=== PATIENT | female | born 1965 | race Caucasian/White ===

== ENCOUNTER 2017-03-28 07:18 | Inpatient (IN) | payer OTHER ==
[~2017-03-28] VITALS: Ht 160 cm; Wt 66.3 kg
[2017-03-28 08:17] LABS: HEMATOCRIT 25.4 % (36.0-46.0); MCH 29.1 PG (29.0-34.0); MCHC 33.1 G/DL (30.0-36.0); MCV 87.9 FL (83-99); RBC DIS.WIDTH-CV 15.1 % (11.8-14.6); RBC DIS.WIDTH-SD 48.9 % (39-53); RED BLOOD COUNT 2.89 M/uL (3.80-5.20); WHITE BLOOD COUNT 7.9 K/uL (4.1-10.2)
[2017-03-28 08:21] LABS: CARBON DIOXIDE (BICARBONATE) 24.6 MEQ/L (20-31)
[2017-03-28 08:47] LABS: TROP-I INTERPRETATION NEGATIVE; TROPONIN-I 0.07 ng/mL (0.0-0.30)
[2017-03-28 09:02] LABS: PLAT.SUFFICIENCY DECREASED
[2017-03-28 09:04] LABS: ANION GAP 11 MEQ/L (2-14); CHLORIDE 103 MEQ/L (99-109); GFR ESTIMATE (CALCULATED) > 59 mL/min/; GLUCOSE 136 mg/dL (70-99); POTASSIUM 3.5 MEQ/L (3.7-5.4); SAMPLE HEMOLYSIS CHECK 0; SAMPLE ICTERIC CHECK 0; SAMPLE LIPEMIA CHECK 0; SODIUM 135 MEQ/L (136-147); UREA NITROGEN (BUN) 16 mg/dL (9-23)
[2017-03-28 09:10] LABS: ADD MIUA? YES; BILIRUBIN NEGATIVE; BLOOD MODERATE; COLOR COLORLESS ((YELLOW)); GLUCOSE (STRIP) NEGATIVE; KETONES NEGATIVE; LEUKOCYTES NEGATIVE; NITRITE NEGATIVE; PROTEIN (STRIP) NEGATIVE; SPECIFIC GRAVITY 1.002 (1.000-1.030); UROBILINOGEN 0.2 MG/DL (0.2-1.0)
[2017-03-28 09:12] LABS: BACTERIA NONE SEEN /HPF; EPITHELIAL CELLS NONE SEEN /HPF; MUCUS NONE SEEN /LPF; RED BLOOD CELLS 0-5 /HPF (0-5); UCUL ADDED? NO; WHITE BLOOD CELLS 0-5 /HPF (0-5)
[2017-03-28 09:19] LABS: IMM.PLATELET FRACTION 4.6 (1-7); MEAN PLAT.VOLUME 10.8 uM^3 (9.5-12.4)
[2017-03-28 09:20] LABS: PLATELET COUNT 27 K/uL (156-360)
[2017-03-28] MEDS ORDERED: VALTREX50 MG/ML PO (11:53)
[2017-03-28] MEDS ORDERED: SYNTHROID88 MCG PO (11:54)
[2017-03-28] MEDS ORDERED: COLCHICINE0.6 M1 PO (11:54)
[2017-03-28] MEDS ORDERED: HYDREA500 MG PO (11:54)
[2017-03-28] MEDS ORDERED: TYLENOL EXTRA500 MG PO (11:55)
[2017-03-28] MEDS ORDERED: CRESEMBA186 MG PO (11:55)
[2017-03-28] MEDS ORDERED: LEVOFLOXACIN500 MG PO (11:55)
[2017-03-28] MEDS ORDERED: ZOFRAN4 MG PO (11:56)
[2017-03-28] MEDS ORDERED: COMPAZINE5 MG PO (11:56)
[2017-03-28 13:35] VITALS: BP 106/72
[2017-03-28 17:40] VITALS: BP 128/71
[2017-03-28 20:29] VITALS: BP 124/74
[2017-03-29 00:19] VITALS: BP 111/66
[2017-03-29 03:57] VITALS: BP 113/73
[2017-03-29 06:58] LABS: ANION GAP 12 MEQ/L (2-14); CHLORIDE 109 MEQ/L (99-109); POTASSIUM 3.6 MEQ/L (3.7-5.4); SAMPLE HEMOLYSIS CHECK 0; SAMPLE ICTERIC CHECK 0; SAMPLE LIPEMIA CHECK 0; SODIUM 140 MEQ/L (136-147)
[2017-03-29 07:04] LABS: GFR ESTIMATE (CALCULATED) > 59 mL/min/; GLUCOSE 120 mg/dL (70-99); UREA NITROGEN (BUN) 11 mg/dL (9-23)
[2017-03-29 08:29] VITALS: BP 109/65
[2017-03-29 11:29] LABS: HEMATOCRIT 22.7 % (36.0-46.0); IMM.PLATELET FRACTION 8.8 (1-7); MCH 30.5 PG (29.0-34.0); MCHC 34.4 G/DL (30.0-36.0); MCV 88.7 FL (83-99); MEAN PLAT.VOLUME 10.4 uM^3 (9.5-12.4); PLAT.SUFFICIENCY DECREASED; RBC DIS.WIDTH-CV 15.5 % (11.8-14.6); RBC DIS.WIDTH-SD 50.2 % (39-53); RED BLOOD COUNT 2.56 M/uL (3.80-5.20)
[2017-03-29 11:43] VITALS: BP 110/72
[2017-03-29] MEDS ORDERED: VANCOMYCIN HCL500 MG IV (13:04)
[2017-03-29] MEDS ORDERED: ZOSYN 3.3753.375 GM IV (13:05)
[2017-03-29 13:19] LABS: PLATELET COUNT 17 K/uL (156-360)
== END 2017-03-29 15:01 | disposition short-term general hospital (02) | DRG 834 ==
LOC: EME 07:18 → EDOF 10:34 → ENRESERV 10:37 → 5SOUTH 13:20
PROVIDERS: Emergency Medicine; Hospitalist; Internal Medicine
DX: C92.00 Acute myeloblastic leukemia, not having achieved remission (principal); R50.81 Fever presenting with conditions classified elsewhere; R65.10 Systemic inflammatory response syndrome (SIRS) of non-infectious origin without acute organ dysfunction; J16.8 Pneumonia due to other specified infectious organisms; B49 Unspecified mycosis; E86.0 Dehydration; Z94.81 Bone marrow transplant status; Z92.21 Personal history of antineoplastic chemotherapy; D69.6 Thrombocytopenia, unspecified; I95.9 Hypotension, unspecified; E03.9 Hypothyroidism, unspecified; I31.3 Pericardial effusion (noninflammatory); R00.0 Tachycardia, unspecified; R00.2 Palpitations
CPT/HCPCS: 71020; 71275; 80048; 81003; 82803; 83605; 83880; 84484; 85027; 85379; 87040; 87086; 93005; 99281; 99285; J0780; J1170; J2270; J2405; J2543; J3370; J3465; J7030; J7040; J7050; Q0164

== ENCOUNTER 2017-04-04 00:55 | Emergency (ER) | payer OTHER ==
[~2017-04-04] VITALS: Ht 157.5 cm; Wt 68.2 kg
[~2017-04-04 00:55] MED LIST: COLCHICINE0.6 M1 PO; COMPAZINE5 MG PO; CRESEMBA186 MG PO; HYDREA500 MG PO; LEVOFLOXACIN500 MG PO; SYNTHROID88 MCG PO; TYLENOL EXTRA500 MG PO; VALTREX50 MG/ML PO; VANCOMYCIN HCL500 MG IV; ZOFRAN4 MG PO; ZOSYN 3.3753.375 GM IV
[2017-04-04 04:18] LABS: INTER. NORMALIZED RATIO 2.3; PROTHROMBIN TIME 25.7 SEC (10.2-12.9)
[2017-04-04 04:20] LABS: CHLORIDE 111 mEq/L (99-109); POTASSIUM 3.2 mEq/L (3.7-5.4); SODIUM 139 mEq/L (136-147)
[2017-04-04 04:22] LABS: GLUCOSE 106 mg/dL (70-99)
[2017-04-04 04:22] LABS: TOTAL BILIRUBIN 0.9 mg/dL (0.0-1.0)
[2017-04-04 04:24] LABS: ALKALINE PHOSPHATASE 171 IU/L (3-129); HEMATOCRIT 23.1 % (36.0-46.0); MCH 29.2 PG (29.0-34.0); MCHC 34.6 G/DL (30.0-36.0); RBC DIS.WIDTH-CV 17.3 % (11.8-14.6); RBC DIS.WIDTH-SD 53.8 % (39-53); RED BLOOD COUNT 2.74 M/uL (3.80-5.20)
[2017-04-04 04:24] LABS: ANION GAP 17 MEQ/L (2-14); TOTAL BILIRUBIN 0.9 mg/dL (0.0-1.0)
[2017-04-04 04:25] LABS: WHITE BLOOD COUNT 1.1 K/uL (4.1-10.2)
[2017-04-04 04:26] LABS: ALKALINE PHOSPHATASE 169 IU/L (3-129); GFR ESTIMATE (CALCULATED) > 59 mL/min/; PTT 35.9 SEC (25-37)
[2017-04-04 04:26] LABS: DIRECT BILIRUBIN 0.6 mg/dL (0.0-0.3); MCV 84.3 FL (83-99)
[2017-04-04 04:27] LABS: LIPASE 4 U/L (1.0-51.0)
[2017-04-04 04:41] LABS: UREA NITROGEN (BUN) 23 mg/dL (9-23)
[2017-04-04 05:22] LABS: IMM.PLATELET FRACTION 2.6 (1-7); MEAN PLAT.VOLUME 10.5 uM^3 (9.5-12.4)
[2017-04-04 05:51] LABS: CREATINE KINASE 83 IU/L (1-294)
[2017-04-04 05:59] LABS: PLAT.SUFFICIENCY VERY DECREASED; PLATELET COUNT 25 K/uL (156-360)
[2017-04-04 09:26] VITALS: BP 111/66
== END 2017-04-04 09:53 | disposition home or self-care (01) ==
LOC: EME 00:55
PROVIDERS: Emergency Medicine; Physician Assistant
DX: E86.0 Dehydration (principal); R60.0 Localized edema; E87.2 Acidosis; E87.6 Hypokalemia; R06.89 Other abnormalities of breathing; D61.818 Other pancytopenia; C95.90 Leukemia, unspecified not having achieved remission; E03.9 Hypothyroidism, unspecified; Z87.442 Personal history of urinary calculi; Z88.0 Allergy status to penicillin
CPT/HCPCS: 71010; 80053; 80076; 81003; 82550; 83605; 83690; 85027; 85610; 85730; 87040; 87177; 87493; 93005; 93971; 99281; 99285; J3480; J7030